=== PATIENT | male | born 2000 | race Caucasian/White ===

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

== ENCOUNTER → 2019-05-30 13:57 | Outpatient (CLI) | payer OTHER ==
--- NOTE | 2019-06-06 08:42 | EC ---
PATIENT:DURGA HECTOR DATE OF SERVICE: 05/30/19 SEX: M MEDICAL RECORD: [id number] DATE OF : [birth year] LOCATION:[facility] AGE OF PATIENT: 19 ADMISSION DATE: 05/30/19 REFERRING PHYSICIAN: INTERPRETING PHYSICIAN: ELENA SIERRA MD ECHOCARDIOGRAM REPORT ECHO CHARGES 4 ECHO COMPLETE Date: 05/30/19 CLINICAL DIAGNOSIS: PALPITATIONS/MURMUR ECHOCARDIOGRAPHIC MEASUREMENTS (adult normal given) AC root (d.<3.7cm) 3.2 cm LV Septum d (<1.2 cm> 1.2 cm Valve Excursion 2.2 cm LV Septum (systole) 1.7 cm Left Atria (s.<4.0cm> 3.5 cm LVPW d(<1.2cm) 1.1 cm RV (d.<2.3cm) 2.8 cm LVPW (sytole) 1.6 cm LV diastole(<5.6CM) 5.8 cm MV E-F(>70mm/sec) cm LV systole 3.0 cm LVOT Diameter 2.2 cm MV exc.(>10mm) cm Est.ejection fraction (50-75%) % DOPPLER: LVIT cm/sec A 26.0 cm/sec E 83.0 cm/sec LA cm/sec RVSP 33.0 mmHg LVOT 89.0 cm/sec AOP1/2T m/s Asc. Ao 121 cm/sec RVOT 59.0 cm/sec RA cm/sec PA 107 cm/sec AV Gradient Peak 5.9 mmHg AV Mean 3.0 mmHg AV Area 2.2 cm MV Gradient Peak 2.9 mmHg MV Mean 1.0 mmHg MV Area cm COMMENTS: OP - HC Cane Packer: Ronen MUÑOZ ISABELLE Punchboard Filling Machine Operator: 3 Dr. Bernstein TAPE# PACS Pericardial Effusion N DATE OF SERVICE: 05/30/2019 Adequate 2D, color flow imaging, spectral Doppler, and M-Mode No LVH. LV internal dimensions are normal. Wall motion is normal. EF is greater than or equal to 55%. Aortic valve is tricuspid. No evidence of stenosis by Doppler interrogation. Left atrium is normal. Mitral valve shows no prolapse. Trace MR. Right-sided chambers are grossly normal. Trace TR. TRANSINT:[id number] Voice Confirmation ID: [id number] DOCUMENT ID: [id number] ECHOCARDIOGRAM REPORT [id number] DURGA HECTOR GREGORY A MD at 0842 CC: [id number] DICTATION DATE: 06/04/19 1232 WEAVE DEFECT CHARTING CLERK: 06/04/19 1256 DEP CLI 05/30/19 [place] [id number] [place] [id number]
--- NOTE | 2019-06-06 08:42 | ST ---
PATIENT:DURGA HECTOR MEDICAL RECORD: [id number] SEX: M LOCATION:[facility] ORDER #: ADMISSION DATE: 05/30/19 AGE OF PATIENT: 19 REFERRING PHYSICIAN: INTERPRETING PHYSICIAN: ELENA SIERRA MD DATE OF SERVICE: 05/30/2019 PROCEDURE: Treadmill stress test. Baseline ECG is normal. DESCRIPTION OF PROCEDURE: Exercised for 3 minutes on Jose Manuel protocol. Maximum heart rate 134 beats per minute. No ECG changes of ischemia. No symptoms of ischemia. Normal blood pressure response to exercise. No arrhythmias noted. Good exercise tolerance for age. TRANSINT:[id number] Voice Confirmation ID: [id number] DOCUMENT ID: [id number] ELENA SIERRA MD at 0842 CC: [id number] DICTATION DATE: 06/04/19 1354 DAM WORKER: 06/04/19 1408 DEP CLI 05/30/[address] [id number]
== END | disposition home or self-care (01) ==
LOC: D.HCCARDIO 13:57
PROVIDERS: ATTEND Internal Medicine Interventional Cardiology
DX: R00.2 Palpitations (principal)